=== PATIENT | female | born 1985 | race Two or more races ===

== ENCOUNTER 2016-09-23 20:33 | Emergency (ER) | payer OTHER, MEDICAID ==
[~2016-09-23] VITALS: Ht 165.1 cm; Wt 70.0 kg
[2016-09-24 00:08] LABS: BASOPHILS % 0.5 % (0.0-2.0); EOSINOPHILS % 1.3 % (0.0-5.0); HEMATOCRIT. 39.3 % (36.0-48.0); HEMOGLOBIN. 13.5 g/dL (12.0-16.0); MEAN CORPUSCULAR HEMOGLOBIN 30.9 pg (28.0-32.0); MEAN CORPUSCULAR VOLUME 90.1 fL (81.0-99.0); MEAN PLATELET VOLUME 8.7 fl (7.4-10.4); MONOCYTES % 8.7 % (2.0-8.0); NEUTROPHILS % 54.5 % (40.0-76.0); PLATELET 176 x1000/uL (130-400); RED BLOOD CELL COUNT 4.37 mill/uL (4.2-5.4); RED CELL DISTRIBUTION WIDTH 12.5 % (11.6-14.6)
[2016-09-24 00:24] LABS: CARBON DIOXIDE 27 mEq/L (21-32); CHLORIDE 105 mEq/L (98-107); TROPONIN I < 0.02 ng/mL (0.00-0.04)
[2016-09-24 04:44] VITALS: BP 121/80
== END 2016-09-24 04:45 | disposition home or self-care (01) ==
LOC: ER 23:36
DX: R07.9 Chest pain, unspecified (principal); R20.0 Anesthesia of skin; R11.2 Nausea with vomiting, unspecified
CPT/HCPCS: 36415; 70450; 71010; 72040; 80053; 81025; 84484; 85025; 93005; 99285

== ENCOUNTER 2024-06-03 10:28 | Inpatient (IN) | payer OTHER, MEDICAID ==
[~2024-06-03] VITALS: Ht 170.2 cm; Wt 78.0 kg
[2024-06-03] MEDS: SODIUM CHLORIDE 0.9% 1,000 ML IV ONE (10:56)
[2024-06-03 11:04] LABS: BASOPHILS % 0.5 % (0.0-2.0); EOSINOPHILS % 1.8 % (0.0-5.0); HEMATOCRIT. 41.3 % (36.0-48.0); HEMOGLOBIN. 13.9 g/dL (12.0-16.0); LYMPHOCYTES % 27.5 % (20.0-50.0); MEAN CORPUSCULAR HEMOGLOBIN 30.5 pg (28.0-32.0); MEAN CORPUSCULAR HGB CONC 33.7 g/dL (31.0-37.0); MEAN CORPUSCULAR VOLUME 90.7 fL (81.0-99.0); MEAN PLATELET VOLUME 8.9 fl (7.4-10.4); MONOCYTES % 6.5 % (2.0-8.0); NEUTROPHILS % 63.7 % (40.0-76.0); PLATELET 209 x1000/uL (130-400); RED BLOOD CELL COUNT 4.55 mill/uL (4.2-5.4); RED CELL DISTRIBUTION WIDTH 12.7 % (11.6-14.6); WHITE BLOOD COUNT 10.5 x1000/uL (4.5-11.0)
[2024-06-03 11:09] LABS: DIFFERENTIAL COMMENT 1
[2024-06-03 11:14] LABS: CHLORIDE 106 mEq/L (98-107); POTASSIUM 3.8 mEq/L (3.5-5.1); SODIUM 138 mEq/L (136-145)
[2024-06-03 11:15] LABS: CARBON DIOXIDE 22 mEq/L (21-32)
[2024-06-03 11:18] LABS: HCG SCREEN NEGATIVE
[2024-06-03 11:20] LABS: CREATININE 0.6 mg/dL (0.6-1.0); GLUCOSE 109 mg/dL (70-105); UREA NITROGEN BLOOD 12 mg/dL (9-23)
[2024-06-03 11:28] LABS: TROPONIN I HIGH SENSITIVITY < 4 ng/L (3.0-34)
[2024-06-03] MEDS: IOHEXOL-350 100 ML BOTTLE ONE (12:50)
[2024-06-03] MEDS: ENOXAPARIN 80MG/0.8ML SYR SUBCUT ONE (13:15)
[2024-06-03 15:10] VITALS: BP 108/67; PULSE 68; RESP 18; TEMP 36.3
[2024-06-03 16:00] VITALS: BP 108/67; PULSE 68; RESP 18; TEMP 36.3; O2SAT 100
[2024-06-03] MEDS ORDERED: ONDANSETRON HCL 4MG/2ML INJ IV PRN (16:30)
[2024-06-03] MEDS ORDERED: ACETAMINOPHEN 325MG TABLET PO PRN ×2 (16:30)
[2024-06-03] MEDS ORDERED: IPRATROPIUM/ALBUTEROL 0.5-3(2.5)MG/3ML NEB HHN PRN (16:30)
[2024-06-03] MEDS ORDERED: IBUPROFEN 400MG TABLET PO PRN (17:00)
[2024-06-03] MEDS ORDERED: NALOXONE HCL 0.4MG/ML VIAL IV PRN (17:15)
[2024-06-03] MEDS: PANTOPRAZOLE SODIUM 40 MG/VIAL IV NR (17:18)
[2024-06-03] MEDS: HYDROCODONE/ACETAMINOPHEN 7.5/325MG TABLET PO PRN (17:18)
[2024-06-03] MEDS: SODIUM CHLORIDE 0.45% 1,000 ML IV SCH (17:19)
[2024-06-03 18:28] LABS: PROTHROMBIN TIME 10.6 sec (9.6-11.0)
[2024-06-03 20:00] VITALS: BP 100/62; PULSE 71; RESP 20; TEMP 36.7; O2SAT 98
[2024-06-03 20:04] LABS: HEPATITIS B SURFACE ANTIGEN NEGATIVE (Negative)
[2024-06-03 20:25] LABS: HEPATITIS C AB NON REACTIVE (Neg) (Negative)
[2024-06-03] MEDS ORDERED: PANTOPRAZOLE 40MG DR TABLET PO SCH (21:00)
[2024-06-04] VITALS: BP 100/56; PULSE 76; RESP 20; TEMP 36.2; O2SAT 96
[2024-06-04 04:00] VITALS: BP 95/63; PULSE 42; RESP 16; TEMP 36.3; O2SAT 97
[2024-06-04] MEDS: ENOXAPARIN 80MG/0.8ML SYR SUBCUT SCH (06:13)
[2024-06-04 06:41] LABS: CARBON DIOXIDE 22 mEq/L (21-32); CHLORIDE 106 mEq/L (98-107); POTASSIUM 3.5 mEq/L (3.5-5.1); SODIUM 138 mEq/L (136-145)
[2024-06-04 06:42] LABS: CALCIUM 8.3 mg/dL (8.7-10.4)
[2024-06-04 06:45] LABS: CREATININE 0.7 mg/dL (0.6-1.0)
[2024-06-04 06:47] LABS: GLUCOSE 130 mg/dL (70-105); UREA NITROGEN BLOOD 11 mg/dL (9-23)
[2024-06-04 07:08] LABS: BASOPHILS % 0.5 % (0.0-2.0); EOSINOPHILS % 2.6 % (0.0-5.0); HEMATOCRIT. 37.3 % (36.0-48.0); HEMOGLOBIN. 12.8 g/dL (12.0-16.0); LYMPHOCYTES % 35.8 % (20.0-50.0); MEAN CORPUSCULAR HEMOGLOBIN 30.7 pg (28.0-32.0); MEAN CORPUSCULAR HGB CONC 34.2 g/dL (31.0-37.0); MEAN CORPUSCULAR VOLUME 89.8 fL (81.0-99.0); MEAN PLATELET VOLUME 9.1 fl (7.4-10.4); MONOCYTES % 9.1 % (2.0-8.0); PLATELET 177 x1000/uL (130-400); RED BLOOD CELL COUNT 4.15 mill/uL (4.2-5.4); RED CELL DISTRIBUTION WIDTH 12.8 % (11.6-14.6); WHITE BLOOD COUNT 8.3 x1000/uL (4.5-11.0)
[2024-06-04 08:00] VITALS: BP 100/63; PULSE 71; RESP 20; TEMP 36.2; O2SAT 96
[2024-06-04] MEDS: PANTOPRAZOLE SODIUM 40 MG/VIAL IV SCH (09:42)
[2024-06-04 12:00] VITALS: BP 105/73; PULSE 67; RESP 18; TEMP 36.1; O2SAT 99
[2024-06-04] MEDS ORDERED: CYCL10TA21 PO (13:10)
[2024-06-04] MEDS ORDERED: XAR15 PO (13:10)
[2024-06-04] MEDS ORDERED: OXYC-485 PO (13:10)
[2024-06-04 13:48] VITALS: BP 105/73; PULSE 67; TEMP 96.9; O2SAT 99
== END 2024-06-04 16:00 | disposition home or self-care (01) | DRG 299 ==
LOC: ER 10:28 → 8WST 13:52 → EDBEDREQ 13:54 → EDBEDREQTM 13:54
PROVIDERS: ADMIT Hospitalist; ATTEND Hospitalist
DX: I82.402 Acute embolism and thrombosis of unspecified deep veins of left lower extremity (principal); I26.99 Other pulmonary embolism without acute cor pulmonale; D68.69 Other thrombophilia; R55 Syncope and collapse; K76.0 Fatty (change of) liver, not elsewhere classified; Z82.49 Family history of ischemic heart disease and other diseases of the circulatory system; Z86.718 Personal history of other venous thrombosis and embolism
CPT/HCPCS: 36415; 71045; 71275; 80048; 82962; 83880; 84484; 84703; 85025; 86705; 86850; 86900; 87340; 93005; 99285; J1650; J2470; J7030; Q9967